=== PATIENT | male | born 1975 | race Two or more races ===

== ENCOUNTER 2024-01-18 23:46 | Emergency (ER) | payer MEDICAID, OTHER ==
[~2024-01-18] VITALS: Ht 165.1 cm; Wt 81.0 kg
[2024-01-19 00:20] VITALS: BP 136/95; TEMP 98.6; O2SAT 96
[2024-01-19 00:56] VITALS: PULSE 73; RESP 20
[2024-01-19] MEDS ORDERED: IBUP-1454 PO (02:26)
[2024-01-19] MEDS: IBUPROFEN 600 MG TAB PO ONE (02:37)
== END 2024-01-19 02:38 | disposition home or self-care (01) ==
LOC: ER 23:46
DX: S00.03XA Contusion of scalp, initial encounter (principal); W22.8XXA Striking against or struck by other objects, initial encounter; Y93.89 Activity, other specified; Y92.89 Other specified places as the place of occurrence of the external cause; Y99.8 Other external cause status
CPT/HCPCS: 70450